=== PATIENT | female | born 2000 | race Caucasian/White ===

== ENCOUNTER 2021-04-03 12:47 | Outpatient (REF) | payer BC, SELFPAY ==
--- NOTE | ~2021-04-03 | MR_ITS ---
EXAMINATION: MR SHOULDER WITH CONTRAST, RIGHT CLINICAL INFORMATION: Pain in right shoulder. Patient reports right shoulder injury 4 months ago with decreased range of motion, weakness, discomfort. COMPARISON: None TECHNIQUE: MRI of the shoulder was performed following the intra-articular administration of a dilute gadolinium-containing solution (arthrogram) on a high-field scanner. FINDINGS: ROTATOR CUFF: There is distal supraspinatous tendinosis. There is articular surface fraying and probably a superimposed shallow partial articular surface insertional tear measuring 10 mm transverse. This is difficult to identify and measure on the orthogonal images. The infraspinatus, teres minor, and subscapularis tendons are intact. No muscle atrophy or fatty infiltration. BICEPS: Normal. CORACOACROMIAL ARCH: The undersurface of the acromion is flat with no subacromial spur. There is mild elevation of the distal clavicle relative to the acromion process. There is osseous irregularity of the distal clavicle. There is widening and a small effusion in the acromioclavicular joint. There is patchy bone marrow edema in one small subcortical cyst in the distal clavicle. There is minimal bone marrow edema in the adjacent acromion. There is mild surrounding soft tissue edema. There is mild irregularity and minor edema in the region of the coracoclavicular ligaments consistent with a mild sprain. LABRUM/CAPSULE: The labrum is intact. There is moderate irregularity of the medial aspect of the middle glenohumeral ligament suspicious for prior ligament injury. GLENOHUMERAL JOINT/MARROW: Normal. MR/MR shoulder RT w con IMPRESSION: 1. Distal supraspinatus tendinosis with articular surface fraying and probable superimposed small shallow partial articular surface insertional tear. 2. Findings, as described above, suspicious for a grade 2 acromioclavicular joint separation. Correlate with prior radiographs if these have been performed. If not, recommend acromioclavicular radiographs with and without weights. 3. Moderate irregularity of the glenohumeral ligaments suspicious for prior injury.
--- NOTE | ~2021-04-03 | FL_ITS ---
PROCEDURE: FL ARTHROGRAM SHOULDER, RIGHT CLINICAL INFORMATION: Right shoulder pain. Rule out labral tear. COMPARISON: None TECHNIQUE: Intra-articular injection right shoulder for MRI. FINDINGS: Informed consent was obtained from the patient prior to the procedure. During this process, the procedure and potential alternatives were explained, along with the intended outcome and benefits. The risks of the procedure, as well as the risk of not doing the procedure, were discussed. The patient was given the opportunity to ask questions regarding the procedure and appeared competent to make medical decisions. A signed consent form which documents this discussion was placed in the medical record. Using sterile technique and fluoroscopic guidance, a 22-gauge spinal needle was directed down onto the inferior third of the right glenohumeral joint. A small amount of contrast was injected demonstrating intra-articular positioning of the needle. A total of 20 mL of a mixture of 20 mL of sterile saline and 0.05 mL of Ultram was instilled within the joint. Patient tolerated the procedure without difficulty. FLUOROSCOPY TIME: 1 minute. NUMBER OF IMAGES: 1. DAP: 2.921 Gy-cm2. FL/FL arthrogram shoulder RT IMPRESSION: Right shoulder intra-articular injection for MRI.
== END 2021-04-03 12:48 | disposition home or self-care (01) ==
LOC: HO.XRAY 12:47
PROVIDERS: Visit Provider Emergency Medicine
DX: M25.511 Pain in right shoulder (principal)
CPT/HCPCS: 23350; 73040; 73222; A9585

== ENCOUNTER 2021-09-23 08:15 | Outpatient (RCR) | payer BC, SELFPAY ==
[2021-09-09 11:27] VITALS: BMI 27.3
--- NOTE | 2021-09-09 12:53 | PC.ADMIT ---
Patient is a 21 year old [employer] student who is a non-binary individual who uses pronouns they/them. Patient was referred by their therapist to the [facility] d/t increased in depression with intrusive thoughts of SI-denied plan or intent, and increased anxiety with panic attacks. Patient reports they withdrew from college prior to their meredith year in April 2020 d/t Covid and the challenges of doing classes online. Patient since then was working however reports they were laid off from work recently. Patient feeling lost and reports having no direction, no structure. Feeling isolated d/t Covid. Reports low self esteem and does not want to be left out regarding others around her who are continuing college and feels she will be left behind. Patient reports that they recently tested positive for Covid a month ago. Patient lives with their partner who is supportive however patient does not want to burden them with their issues. Reports also living with roommates who are also supportive however patient does not want to burden them. Patient does eventually wants to go back to college and thinking about changing their major. Patient using marijuana daily to cope with how they are feeling. Reports chronic use. Discussed the negative physical and mental health issues with heavy use. Patient realizes that this is an issues. Encouraged patient to write done the pros and cons of using. Patient agrees not to use in the program. Emailed patient information about marijuana use and things they could do besides use. Patient is alert and oriented x4. calm and cooperative. Presents with depressed mood and affect. Denied SI at present. Reports history of intrusive thoughts the past few weeks however denied plan or intent to harm or kill thyself. Patient reports taking medications as prescribed. reconciled medications with patient and patient's pharmacy.
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
--- NOTE | 2021-09-10 08:19 | PC.NURSE ---
Case opened in treatment team
--- NOTE | 2021-09-17 13:25 | PC.NURSE ---
The client called this morning because she will be out due to having a lab class today in [place].
--- NOTE | 2021-09-19 16:55 | P.PNPSP_ITS ---
Subjective Subjective Date of Service: 09/19/21 Reason For Visit: MDD, LAURIE, Cannabis d/o, Self-Harm Guardianship: No Medical Problems Affecting Mental Status: No Interim History: Client reports ?I am actually doing pretty good ?. 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 This which is done due to continued symptoms of depression. Denies SI at this time, reports feels safe. Considering healthier options regarding stress management rather than marijuana use. Medication Compliance: Yes Side effects from medications: No Attending Groups: Yes Review of Systems Acute medical concerns: No Medical Review of Systems: unchanged Review of Systems Review of Systems Yes all other systems are reviewed and are negative Constitutional: Reports no additional constitutional complaints Mental Status Exam Mental Status Exam Narrative: Well-developed, well-nourished person, in NAD. No involuntary movements noted, motor activity calm. Fully attentive during encounter. Patient Appearance: Well Grooomed and Appropriate Patient Orientation: Person, Place, Time and Situation Level of Consciousness: Appropriate and Alert Patient Behavior: Appropriate, Cooperative and Good Eye Contact Mood Description: Appropriate, Depressed and Anxious Affect Description: Appropriate, Depressed and Anxious Patient Cognition Impaired: No Ability to Follow Directions: Excellent Speech Pattern: Clear, Appropriate and Coherent Memory Description: Intact Hallucinations: None Delusions: Not Present Thought Process: Intact Thought Content: positive for Intact and positive for Linear Depressive Symptoms: Increased Anxiety, Changes in Appetite, Sleeping More Than Usual, Loss of Int. in Activity, Feelings of Worthlessness, Hopelessness, Increased Fatigue, Low Self Esteem, Loss of Energy and Difficulty Concentrating Judgement: Fair Diagnostics Vital Signs (24Hr): BMI result Verdana 4 Body Mass Index Verdana 4 27.3 Verdana 4 Verdana 4 Assessment & Plan Assessment & Plan (1) Major depressive disorder, recurrent severe without psychotic features: Status: Acute Code(s): F33.2 - Major depressive disorder, recurrent severe without psychotic features Assessment and Plan: Client reports ?I am actually doing pretty good ?. 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 Medication change done due to continued symptoms of depression. Denies SI at this time, reports feels safe. Fluoxetine reviewed, including risks and benefits, alternatives, etc. client reports they plan to pick it up and start it. (2) Generalized anxiety disorder: Status: Acute Code(s): F41.1 - Generalized anxiety disorder (3) Cannabis dependence, uncomplicated: Status: Acute Code(s): F12.20 - Cannabis dependence, uncomplicated Assessment and Plan: Exploring other ways for managing to stress, such as using essential oils, etc., rather than utilizing cannabis. Plan 1. Client to switch to fluoxetine from sertraline. 2. Continue with current [facility] plan of care. 3. Follow-up as per protocol. Patient educated on: diagnosis, medication risk/benefits, substance abuse and therapeutic strategies Informed Consent: understands Reason for contiued partial hosp. stay Substantial Risk for: harm to self, inability to function and med/psych decompensation Certification I certify that partial hospital treatment is medically necessary due to the symptoms and problems resulting from the patient's mental illness and the failure to treat the patient at the partial hospital level of care would likely result in the patient requiring inpatient psychiatric care which could not be prevented at a less intensive level of care. I spent minutes with the patient and/or on the patient floor today, greater than?50% of which was spent counseling/coordinating care. Discharge Plan Discharge Attending provider: Brian Wynn Medications: No Action sertraline [Zoloft] 100 mg Tablet 100 mg PO DAILY 0RF melatonin 3 mg Tablet 6 mg PO BEDTIME PRN (Reason: Insomnia) 0RF Label Comments: Patient takes OTC PRN. Telehealth Telehealth Location of provider rendering services: practice address Location of patient: address on file Patient Identification confirmed using: Name, : Yes Telehealth method: video Patient verbally consented to treatment: Yes Patient verbally consented to billing insurance company: Yes Patient informed of any privacy concerns related to visit: Yes Time spent with patient (mins): 15
--- NOTE | 2021-09-20 10:19 | PC.NURSE ---
I called the clients therapist, Deepali HATFIELD. re clients progress and upcoming dc on 09/23. Informed Deepali that Lavinia has not secured a psychiatric appointment yet although has plans to call both Brenda Hahn APRN and [facility] today.
--- NOTE | 2021-09-23 11:59 | PC.NURSE ---
Patient scheduled to discharge from the program today. Patient anxious about discharge however stated they think they have a better handle on things today and feel ok about discharge. Patient denied SI, No safety issues. Reviewed patient medication with patient and patient stated her PCP added Prozac 40 mg daily. Patient reports they are taking medications as prescribed.
--- NOTE | 2021-09-23 14:28 | P.PNPSP_ITS ---
Subjective Subjective Date of Service: 09/23/21 Reason For Visit: MDD, LAURIE, Cannabis d/o, Self-Harm Guardianship: No Medical Problems Affecting Mental Status: No Interim History: Client reports that ?I feel a little freaked out right now ?. States this in reference to today being last day in PHP. Denies SI, no safety concern at this time. Reports medications Prozac working well, no side effects. States overall feeling some improvement although does continue with dysphoric mood. Medication Compliance: Yes Side effects from medications: No Attending Groups: Yes Review of Systems Acute medical concerns: No Medical Review of Systems: unchanged Review of Systems Review of Systems Yes all other systems are reviewed and are negative Constitutional: Reports no additional constitutional complaints Mental Status Exam Mental Status Exam Narrative: Well-developed, well-nourished person, in NAD. No involuntary movements noted, motor activity calm. Patient Appearance: Well Grooomed and Appropriate Patient Orientation: Person, Place, Time and Situation Level of Consciousness: Appropriate and Alert Patient Behavior: Appropriate, Cooperative and Good Eye Contact Mood Description: Appropriate and Depressed Affect Description: Calm and Appropriate Patient Cognition Impaired: No Ability to Follow Directions: Excellent Speech Pattern: Clear, Appropriate and Coherent Memory Description: Intact Hallucinations: None Delusions: Not Present Thought Process: Intact Thought Content: positive for Intact, positive for Goal Oriented, positive for Linear and positive for Logical Depressive Symptoms: Increased Anxiety and Low Self Esteem Judgement: Good Diagnostics Vital Signs (24Hr): BMI result Verdana 4 Body Mass Index Verdana 4 27.3 Verdana 4 Verdana 4 Assessment & Plan Assessment & Plan (1) Major depressive disorder, recurrent severe without psychotic features: Status: Acute Code(s): F33.2 - Major depressive disorder, recurrent severe without psychotic features Assessment and Plan: Reports feeling overwhelmed, states ?a little freaked out? about finishing program. Describes that it is due to having ?no safety blanket, without a routine ?. Feels that without the structure of PHP, does not want to slide backwards into a depression again. Discussed ways to help prevent this. Client has set goals, both short-term and long-term, and is working towards them. Has made several medical appointments. Currently volunteering in several positions, and is also a part-time student. Overall feels that PHP was beneficial, and expressed hope for the future. Denies any thought of harm to self or others, no safety concern at this time. Continues with current medication fluoxetine 40 mg. Denies any side effects. Reports some affect in both improvement of depressive symptoms and anxiety symptoms. (2) Generalized anxiety disorder: Status: Acute Code(s): F41.1 - Generalized anxiety disorder Plan 1. Continue all current medications as prescribed by a primary care provider. 2. Follow-up with outpatient providers going forward. Client in process of obtaining a psychiatric provider. 3. Client appears stable for discharge from [facility] at this time. Patient educated on: diagnosis, medication risk/benefits and therapeutic strategies Informed Consent: understands Reason for contiued partial hosp. stay Substantial Risk for: stable for discharge Certification I certify that partial hospital treatment is medically necessary due to the symptoms and problems resulting from the patient's mental illness and the failure to treat the patient at the partial hospital level of care would likely result in the patient requiring inpatient psychiatric care which could not be prevented at a less intensive level of care. I spent minutes with the patient and/or on the patient floor today, greater than?50% of which was spent counseling/coordinating care. Discharge Plan Discharge Attending provider: Brian Wynn Medications: Discontinued sertraline [Zoloft] 100 mg Tablet 100 mg PO DAILY 0RF No Action melatonin 3 mg Tablet 6 mg PO BEDTIME PRN (Reason: Insomnia) 0RF Label Comments: Patient takes OTC PRN. fluoxetine [Prozac] 40 mg Capsule 40 mg PO DAILY 0RF Label Comments: Patient stated her outside prescriber Varsha Eng started her on Prozac 40 mg daily. Stand Alone Forms: Patient Portal Discharge page Telehealth Telehealth Location of provider rendering services: practice address Location of patient: address on file Patient Identification confirmed using: Name, : Yes Telehealth method: video Patient verbally consented to treatment: Yes Patient verbally consented to billing insurance company: Yes Patient informed of any privacy concerns related to visit: Yes Time spent with patient (mins): 20
== END 2021-09-24 07:12 | disposition home or self-care (01) ==
LOC: HO.PHPA 08:15
PROVIDERS: Visit Provider Psychiatry & Neurology Psychiatry
DX: F33.2 Major depressive disorder, recurrent severe without psychotic features (principal); F41.1 Generalized anxiety disorder; F43.9 Reaction to severe stress, unspecified; F12.20 Cannabis dependence, uncomplicated; Z79.899 Other long term (current) drug therapy; Z91.51 Personal history of suicidal behavior
CPT/HCPCS: 90791; 90853